=== PATIENT | female | born 1985 | race Caucasian/White ===

== ENCOUNTER 2023-04-22 04:54 | Inpatient (IN) | payer MEDICAID ==
[2023-04-22] MEDS ORDERED: EXPAREL 133 MG/10 ML VIAL IJ ONE (04:55)
[2023-04-22] MEDS ORDERED: Zofran 4 MG/2 ML VIAL IV PRN ×2 (05:00→13:44)
[2023-04-22 05:47] LABS: Absolute Neutrophil Ct (ANC) 6.88 x10^3/uL (1.4-6.9); BASOPHIL % 0.2 % (0.0-0.4); Basophil (Absolute #) 0.02 x10^3/uL (0-0.4); Eosinophil % 1.4 % (0.00-5.0); Eosinophil (Absolute #) 0.13 x10^3/uL (0-0.5); Hematocrit 36.5 % (35-47); Hemoglobin 12.3 g/dL (12.0-16.0); IMMATURE GRAN # 0.05 x10^3u/L (0.00-0.03); IMMATURE GRAN % 0.5 % (0.00-0.4); Lymphocyte (Absolute #) 1.67 x10^3/uL (1.0-4.6); Lymphocytes % 17.5 % (24.0-44.0); Mean Cell Volume 86.9 fL (78-100); Mean Corpuscular Hemoglobin 29.3 pg (26-32); Mean Corpuscular Hgb Concent. 33.7 g/dL (32-36); Mean Platelet Volume 9.2 fL (7.5-11.0); Monocyte (Absolute #) 0.79 x10^3/uL (0.0-1.3); Monocytes % 8.3 % (0.0-12.0); Neutrophil % 72.1 % (36.0-66.0); Platelet Count 192 x10^3/uL (150-450); Red Cell Distribution Width 13.5 % (11.5-14.0); White Blood Count 9.5 x10^3/uL (4.0-10.5)
[2023-04-22 06:02] LABS: INR 0.87 (0.8-3.0); PROTIME 9.6 SECONDS (9.4-12.5); PTT 24.8 SECONDS (25.1-36.5)
[2023-04-22 06:11] LABS: Appearance Clear (Clear); Bacteria None Seen /HPF (None Seen); Bilirubin Negative (Negative); Blood Negative (Negative); Epithelial Cells None Seen /HPF (None Seen); Glucose, Urine Negative (Negative); Hyaline Casts NONE SEEN /LPF (0-2); Ketones Negative (Negative); Leukocyte Esterase Moderate (Negative); Nitrite Negative (Negative); Ph 6.5 (4.6-8.0); Protein,Urine Dip Negative (Negative); RBC 0-2 /HPF (0-5); WBC 21-50 /HPF (0-5)
[2023-04-22 06:12] LABS: ADD URINE CULTURE? YES (NO)
[2023-04-22 06:25] LABS: ABO TYPING AB; Antibody Screen NEGATIVE (NEGATIVE); RH TYPING POSITIVE
[2023-04-22] MEDS: Lactated Ringers 1,000 ML IV SCH ×2 (06:39→10:59)
[2023-04-22 06:54] LABS: Amphetamine,Urine NEGATIVE (NEGATIVE); Barbiturate,Urine NEGATIVE (NEGATIVE); Cocaine,Urine NEGATIVE (NEGATIVE); Methadone,Urine NEGATIVE (NEGATIVE); PCP,Urine NEGATIVE (NEGATIVE); THC,Urine NEGATIVE (NEGATIVE)
[2023-04-22 07:00] LABS: Benzodiazepine,Urine NEGATIVE (NEGATIVE); Opiate,Urine NEGATIVE (NEGATIVE)
[2023-04-22] MEDS ORDERED: SOD CITRATE-CITRIC ACID SOLN PO SCH (07:00)
[2023-04-22] MEDS ORDERED: Reglan 10 MG/2 ML IV SCH (07:00)
[2023-04-22] MEDS ORDERED: WATER IV SCH (07:00)
[2023-04-22] MEDS ORDERED: Lactated Ringers 1,000 ML IV ONE (07:00)
[2023-04-22] MEDS ORDERED: Pepcid 20 MG VIAL IV SCH (07:00)
[2023-04-22] MEDS ORDERED: CLEOCIN PHOSPHATE IV SCH (07:00)
[2023-04-22] MEDS ORDERED: DEXTROSE IV SCH (07:00)
[2023-04-22] MEDS ORDERED: PHENYLEPHRINE HCL ONE (07:27)
[2023-04-22] MEDS ORDERED: Astramorph-Pf 5 MG/10 ML ONE (07:29)
[2023-04-22] MEDS ORDERED: Pitocin 10 UNITS/ML ONE (07:35)
[2023-04-22] MEDS ORDERED: OFIRMEV IV ONE (07:35)
[2023-04-22] MEDS ORDERED: Sensorcaine 0.25% 10 ML ONE (07:35)
[2023-04-22] MEDS ORDERED: Ephedrine Sulfate 50 MG/ML ONE (08:11)
[2023-04-22] MEDS ORDERED: Versed 2 MG/2 ML Injection ONE (08:23)
--- NOTE | 2023-04-22 10:02 | OP ---
SURGERY DATE/TIME: 04/22/2023 0753 PREOPERATIVE DIAGNOSES: 1) Term intrauterine . 2) History of prior section. POSTOPERATIVE DIAGNOSES: 1) Term intrauterine . 2) History of prior section. PROCEDURE: Repeat low transverse section. SURGEON: Thom Can M.D. ANESTHESIA: Spinal by Raymon Styles CRNA. QUANTITATIVE BLOOD LOSS: 950 ml. URINE OUTPUT: 100 ml of clear straw-colored urine. IV FLUIDS: 1 liters of crystalloid. SPECIMENS: None. DESCRIPTION OF PROCEDURE: After informed written consent was obtained, the patient was taken to the operating room. She underwent spinal anesthesia and was prepped and draped in normal sterile fashion. After adequate level of anesthesia was assessed, a low transverse skin incision was made by knife and carried down through the subcutaneous fat to the level of the fascia. The fascia was nicked on both sides of the midline and extended horizontal using curved Vieira scissors. The superior free edge of the fascia was grasped with Natalie clamps and the underlying rectus muscles were dissected free. The same was repeated inferiorly. The peritoneal cavity was opened bluntly and then bladder flap was created and reflected over the lower uterine segment. A horizontal uterine incision was made by knife and carried down to the level of the amniotic membranes which were carefully artificially ruptured. A viable male infant from the vertex presentation was delivered with a strong cry and immediate good respiratory effort and good tone upon delivery. Bulb suctioned the oropharynx and nares. Clamped and cut the umbilical cord and then handed him off to the awaiting nursery team. The placenta was then manually extracted and the uterus was exteriorized. The uterine cavity was sponge curetted clean with lap sponge. There was a sinus with more than usual blood loss at the right aspect of the uterine incision which was controlled with chromic suture in a running locked fashion. The uterus had good closure, good hemostasis and had good tone. The patient's vital signs were stable throughout the entire procedure. Posterior cul-de-sac was wiped free of blood and clot and the uterus was returned to the peritoneal cavity. Lateral gutters were wiped free of blood and clot with moist lap sponge and again the uterine incision was carefully inspected and noted to have good hemostasis. At that point I verified that the urine was clear in the [place] per anesthesia. Next, the fascial layer was closed with 0 Vicryl in running fashion. Good hemostasis and good closure were achieved at this level. Subcutaneous fat was irrigated with warm sterile saline and any areas of bleeding in the subcutaneous fat were cauterized with electrocautery. Finally, the skin layer was closed with 4-0 undyed Vicryl in a running subcuticular fashion. Steri-Strips and occlusive dressing were placed over the incision. The patient was transferred to the recovery in good condition.
[2023-04-22 12:04] LABS: Absolute Neutrophil Ct (ANC) 13.14 x10^3/uL (1.4-6.9); BASOPHIL % 0.2 % (0.0-0.4); Basophil (Absolute #) 0.03 x10^3/uL (0-0.4); Eosinophil % 0.3 % (0.00-5.0); Eosinophil (Absolute #) 0.04 x10^3/uL (0-0.5); Hematocrit 30.7 % (35-47); Hemoglobin 10.4 g/dL (12.0-16.0); IMMATURE GRAN # 0.07 x10^3u/L (0.00-0.03); IMMATURE GRAN % 0.4 % (0.00-0.4); Lymphocyte (Absolute #) 1.56 x10^3/uL (1.0-4.6); Lymphocytes % 9.8 % (24.0-44.0); Mean Cell Volume 87.5 fL (78-100); Mean Corpuscular Hemoglobin 29.6 pg (26-32); Mean Corpuscular Hgb Concent. 33.9 g/dL (32-36); Mean Platelet Volume 9.1 fL (7.5-11.0); Monocyte (Absolute #) 1.04 x10^3/uL (0.0-1.3); Monocytes % 6.5 % (0.0-12.0); Neutrophil % 82.8 % (36.0-66.0); Platelet Count 182 x10^3/uL (150-450); Red Blood Count 3.51 x10^6/uL (4.1-5.4); Red Cell Distribution Width 13.7 % (11.5-14.0); White Blood Count 15.9 x10^3/uL (4.0-10.5)
[2023-04-22] MEDS ORDERED: Narcan 0.4 MG/ML IV PRN (13:44)
[2023-04-22] MEDS ORDERED: DEMEROL 50 MG IV PRN (13:44)
[2023-04-22] MEDS ORDERED: Nubain 10 MG/ML IV PRN (13:44)
[2023-04-22] MEDS ORDERED: MORPHINE SULFATE 2 MG INJ IV PRN (13:44)
[2023-04-22] MEDS ORDERED: CLARITIN 10 MG PO PRN (13:44)
[2023-04-22] MEDS ORDERED: HOLD NARCOTIC ANALGESICS AND SEDATIVES X24 HR MC PRN (13:44)
[2023-04-22] MEDS ORDERED: BENADRYL 50 MG/ML IV PRN (13:44)
[2023-04-22] MEDS ORDERED: PERCOCET TABLET 5/325MG PO PRN (13:44)
[2023-04-22] MEDS: Dextrose 5%-Lr IV Solution 1000 ML 1,000 ML IV SCH (14:07)
[2023-04-22] MEDS ORDERED: Phenergan 25 MG INJ*** 12.5 MG in Sodium Chloride 0.9% 100 ML IV PRN ×2 (15:10→15:14)
[2023-04-22] MEDS: TORAdol 30 mg Injection IV PRN (15:30)
[2023-04-22] MEDS: SYNTHROID 125 MCG PO SCH (21:50)
[2023-04-22] MEDS: Docusate Sodium 100 MG PO SCH (21:50)
[2023-04-23] MEDS: TORAdol 30 mg Injection IV PRN (04:49)
[2023-04-23 05:02] LABS: Absolute Neutrophil Ct (ANC) 8.86 x10^3/uL (1.4-6.9); BASOPHIL % 0.2 % (0.0-0.4); Basophil (Absolute #) 0.02 x10^3/uL (0-0.4); Eosinophil % 1.1 % (0.00-5.0); Eosinophil (Absolute #) 0.13 x10^3/uL (0-0.5); Hematocrit 28.1 % (35-47); Hemoglobin 9.2 g/dL (12.0-16.0); IMMATURE GRAN # 0.05 x10^3u/L (0.00-0.03); IMMATURE GRAN % 0.4 % (0.00-0.4); Lymphocyte (Absolute #) 1.41 x10^3/uL (1.0-4.6); Lymphocytes % 12.1 % (24.0-44.0); Mean Cell Volume 88.4 fL (78-100); Mean Corpuscular Hemoglobin 28.9 pg (26-32); Mean Corpuscular Hgb Concent. 32.7 g/dL (32-36); Mean Platelet Volume 9.5 fL (7.5-11.0); Monocyte (Absolute #) 1.22 x10^3/uL (0.0-1.3); Monocytes % 10.4 % (0.0-12.0); Neutrophil % 75.8 % (36.0-66.0); Platelet Count 180 x10^3/uL (150-450); Red Blood Count 3.18 x10^6/uL (4.1-5.4); Red Cell Distribution Width 14.2 % (11.5-14.0); White Blood Count 11.7 x10^3/uL (4.0-10.5)
[2023-04-23] MEDS: FEOSOL 325 MG PO SCH (08:51)
[2023-04-23] MEDS: LANSINOH 40 GM TOP PRN ×2 (08:51→20:49)
[2023-04-23] MEDS: Docusate Sodium 100 MG PO SCH ×2 (08:51→20:00)
[2023-04-23] MEDS: THERAGRAN MULTIVITAMIN PO SCH (08:51)
[2023-04-23] MEDS: MOTRIN 400 MG PO PRN ×2 (13:42→20:00)
[2023-04-23] MEDS: TYLENOL EXTRA STRENGTH 500 MG PO PRN (17:56)
[2023-04-23] MEDS: Lactated Ringers 1,000 ML IV SCH (19:41)
[2023-04-23] MEDS: Dextrose 5%-Lr IV Solution 1000 ML 1,000 ML IV SCH (19:41)
[2023-04-23] MEDS: SYNTHROID 125 MCG PO SCH (20:51)
[2023-04-24 03:03] VITALS: RESP 18
[2023-04-24] MEDS: TYLENOL EXTRA STRENGTH 500 MG PO PRN (03:39)
[2023-04-24] MEDS: MOTRIN 400 MG PO PRN (08:03)
[2023-04-24 09:10] VITALS: BP 117/59; PULSE 74; TEMP 97.7; O2SAT 99
[2023-04-24] MEDS: Docusate Sodium 100 MG PO SCH (09:55)
[2023-04-24] MEDS: FEOSOL 325 MG PO SCH (09:55)
[2023-04-24] MEDS: THERAGRAN MULTIVITAMIN PO SCH (09:55)
--- NOTE | 2023-04-24 10:49 | PCM.DS ---
Discharge Summary Date of Admission: 04/22/23 04:54 Admitting Physician: MEI MENG Consults: Consults on Case 04/21/23 01:00 Notify Physician OF ADMISSION 04/22/23 05:00 Notify Anesthesia Provider ROUTINE 04/22/23 13:44 Notify Anesthesia Provider PRN Primary Care Provider: MEI MENG Allergies Allergies Penicillins Allergy (Intermediate, Verified 04/22/23 05:12) Rash fever Hospital Summary - Hospital Course Hospital Course: patient delivered via repeat at 39wks, no complications. doing great post-op, . pain well controlled with tylenol and ibuprofen, minimal lochia - Vitals & Intake/Output Vital Signs: Vital Signs Temperature 97.7 F 04/24/23 08:00 Pulse Rate 74 04/24/23 08:00 Respiratory Rate 18 04/24/23 08:00 Blood Pressure 117/59 04/24/23 08:00 O2 Sat by Pulse Oximetry 99 04/24/23 08:00 Intake & Output: Intake & Output 04/21/23 04/22/23 04/23/23 04/24/23 11:59 11:59 11:59 11:59 Intake Total 1000 2040 900 Output Total 900 Balance 1000 1140 900 Weight 86.183 kg - Lab Result Diagrams: 04/23/23 04:25 Micro Results-Entire Visit: Microbiology 04/22/23 08:10 Urine Culture - Final Catherized <10K NORMAL SKIN KELBY PROBABLE SKIN CONTAMINANT 04/22/23 06:02 Urine Culture - Final Urine, Void <10K NORMAL SKIN KELBY PROBABLE SKIN CONTAMINANT - Procedures and Test Procedures and Tests throughout Hospitalization: Therapy Orders & Screens 04/22/23 09:50 Standby ROUTINE Comment: Diagnosis: Repeat section Discharge Exam General Appearance: no apparent distress Neurologic Exam: alert Respiratory Exam: normal breath sounds, lungs clear, No respiratory distress Cardiovascular Exam: regular rate/rhythm, normal heart sounds Gastrointestinal/Abdomen Exam: soft, other (incision clean, dry, intact) Extremity Exam: normal inspection, normal range of motion Skin Exam: normal color, warm, dry Final Diagnosis/Problem List - Final Discharge Diagnosis/Problem (1) delivery delivered Current Visit: Yes Status: Acute Code(s): O82 - ENCOUNTER FOR ROBERT PEDERSON WITHOUT INDICATION - Discharge Disposition: Home, Self-Care Condition: Stable Prescriptions: Continue Ferrous Sulfate 325 mg PO DAILY Vit No.179/Iron/Folic [ Tablet] 1 each PO DAILY Levothyroxine Sodium 50 Mcg [Synthroid 50 Mcg] 50 mcg PO DAILY Levothyroxine Sodium 200 mcg PO DAILY Follow up with: MEI MENG MD [Primary Care Provider] - 1 Week
== END 2023-04-24 11:55 | disposition home or self-care (01) | DRG 788 ==
LOC: OBSVTOIN 04:54 → MED SURG 04:54
PROVIDERS: ADMIT Family Medicine; ATTEND Family Medicine
PROC: 10D00Z1 Extraction of Products of Conception, Low, Open Approach (ICD-10-PCS; principal; 2023-04-22)
DX: O34.211 Maternal care for low transverse scar from previous cesarean delivery (principal); N85.8 Other specified noninflammatory disorders of uterus; Z3A.39 39 weeks gestation of pregnancy; Z37.0 Single live birth
CPT/HCPCS: 36415; 64488; 76937; 80307; 81001; 85025; 85610; 85730; 86850; 86900; 86901; 87086; 94799; G0379; J1885; J2250; J2274; J2371; J2405; J2550; J2590; A9270-GY